=== PATIENT | male | born 1965 | race Hispanic/Latino ===

== ENCOUNTER → 2021-11-05 | Day surgery (SDC) | payer OTHER ==
[~2021-11-05] MED LIST: EPINEPHRINE HCL 1:1000 1ML 1 MG/ML AMP ONE; FENTANYL CITRATE/PF 100MCG/2 ML INJ ONE; HYDRALAZINE HCL50 MG PO; HYOSCYAMINE SULFATE 0.5 MG/ML INJ ONE; METOPROLOL TART50 MG PO; MIDAZOLAM HCL 2 MG/2 ML VIAL ONE; NIFEDIPINE PO; PREDNISONE5 MG PO; PROPOFOL IV EMULSION 10 MG/ML 20 ML VIAL ONE; RENVELA800 MG PO; SODIUM CHLORIDE 0.9% 500ML 500 ML ONE
[2021-11-05 11:30] LABS: BASOPHILS # (AUTO) 0.1 (0.0-0.1); BASOPHILS % 1.1 % (0.0-1.0); EOSINOPHILS # (AUTO) 0.5 (0.0-0.4); EOSINOPHILS % 8.6 % (0.0-6.0); HEMATOCRIT 35.6 % (38.2-49.6); HEMOGLOBIN 11.3 g/dL (14.0-18.0); LYMPHOCYTES # (AUTO) 0.6 (1.0-3.2); LYMPHOCYTES % 11.4 % (18.0-39.1); MEAN CORPUSCULAR HGB CONC 31.7 g/dL (31-35); MEAN CORPUSCULAR VOLUME 88.1 fL (81-99); MONOCYTES # (AUTO) 0.5 (0.2-0.8); NEUTROPHILS # (AUTO) 3.9 (2.1-6.9); NEUTROPHILS % 69.7 % (38.7-80.0); PLATELET COUNT 160 x10e3/uL (140-360); RED BLOOD COUNT 4.04 x10e6/uL (4.3-5.7); RED CELL DISTRIBUTION WIDTH 14.1 % (11.7-14.4)
[2021-11-05 11:54] LABS: INR 0.94; PROTHROMBIN TIME 13.4 seconds (11.9-14.5)
[2021-11-05 11:55] LABS: PARTIAL THROMBOPLASTIN TIME 31.8 seconds (23.8-35.5)
[2021-11-05 12:01] LABS: ANION GAP 19.6 mmol/L (8-16); CALCIUM 9.1 mg/dL (8.4-10.2); CREATININE, SERUM 7.45 mg/dL (0.72-1.25); POTASSIUM 3.6 mmol/L (3.5-5.1)
[2021-11-05 13:35] VITALS: BP 110/61
== END | disposition home or self-care (01) ==
LOC: OR 10:34
PROVIDERS: ATTEND Internal Medicine Gastroenterology
DX: Z09 Encounter for follow-up examination after completed treatment for conditions other than malignant neoplasm (principal); Z86.010 Personal history of colon polyps; K57.30 Diverticulosis of large intestine without perforation or abscess without bleeding; K64.8 Other hemorrhoids; I12.0 Hypertensive chronic kidney disease with stage 5 chronic kidney disease or end stage renal disease; N18.6 End stage renal disease; Z01.810 Encounter for preprocedural cardiovascular examination; Z99.2 Dependence on renal dialysis; Z79.899 Other long term (current) drug therapy; Z86.16 Personal history of COVID-19
CPT/HCPCS: 36415; 45378; 80048; 85025; 85610; 85730; 93005; J0171; J1980; J2250; J3010; J7040